=== PATIENT | female | born 1990 | race African-American/Black ===

== ENCOUNTER 2019-12-22 23:12 | Emergency (ER) | payer BC, OTHER ==
[~2019-12-22] VITALS: Ht 167.6 cm; Wt 104.2 kg
[2019-12-23] MEDS ORDERED: SODIUM CHLORIDE 0.9% 1,000 ML IV ONE (00:16)
[2019-12-23] MEDS ORDERED: LORAZEPAM 0.5MG TABLET PO ONE (00:30)
[2019-12-23 00:46] LABS: BASOPHILS % 0.8 % (0.0-2.0); EOSINOPHILS % 1.6 % (0.0-5.0); HEMATOCRIT. 38.1 % (36.0-48.0); HEMOGLOBIN. 12.8 g/dL (12.0-16.0); LYMPHOCYTES % 31.3 % (20.0-50.0); MEAN CORPUSCULAR HEMOGLOBIN 29.5 pg (28.0-32.0); MEAN CORPUSCULAR VOLUME 87.7 fL (81.0-99.0); MEAN PLATELET VOLUME 7.8 fl (7.4-10.4); MONOCYTES % 7.4 % (2.0-8.0); NEUTROPHILS % 58.9 % (40.0-76.0); PLATELET 265 x1000/uL (130-400); RED BLOOD CELL COUNT 4.34 mill/uL (4.2-5.4)
[2019-12-23 00:52] LABS: CHLORIDE 106 mEq/L (98-107)
[2019-12-23 00:56] LABS: ETHANOL BLOOD < 10 mg/dL
[2019-12-23 01:14] LABS: CLARITY URINE CLEAR (CLEAR); COLOR URINE YELLOW (YELLOW); KETONES URINE TRACE (NEGATIVE); LEUKOCYTE ESTERASE URINE 1+ (NEGATIVE); NITRITE URINE NEGATIVE (NEGATIVE); OCCULT BLOOD URINE 2+ (NEGATIVE); PROTEIN URINE TRACE (NEGATIVE); SPECIFIC GRAVITY URINE 1.039 (1.005-1.030); UROBILINOGEN URINE 0.2 E.U./dL (0.2-1.0)
[2019-12-23 01:37] LABS: CANNABINOID URINE SCREEN NEGATIVE (NEGATIVE); OPIATES URINE SCREEN NEGATIVE (NEGATIVE); PHENCYCLIDINE URINE SCREEN NEGATIVE (NEGATIVE)
[2019-12-23 01:38] LABS: *AMPHETAMINES SCREEN URINE NEGATIVE (NEGATIVE); *BARBITURATES SCREEN URINE NEGATIVE (NEGATIVE); *BENZODIAZEPINES SCREEN URINE NEGATIVE (NEGATIVE); *COCAINE SCREEN URINE NEGATIVE (NEGATIVE); METHADONE URINE SCREEN NEGATIVE (NEGATIVE)
[2019-12-23 02:00] VITALS: BP 109/74
== END 2019-12-23 02:15 | disposition home or self-care (01) ==
LOC: ER 23:12
DX: I49.3 Ventricular premature depolarization (principal); N30.00 Acute cystitis without hematuria; R00.2 Palpitations; Z87.440 Personal history of urinary (tract) infections; Z86.19 Personal history of other infectious and parasitic diseases
CPT/HCPCS: 36415; 80053; 80305; 80320; 81003; 81025; 84443; 85025; 93005; 99284; J7030; G0480

== ENCOUNTER 2020-08-31 13:25 | Emergency (ER) | payer BC, MEDICAID, OTHER ==
[~2020-08-31] VITALS: Ht 160 cm; Wt 120.0 kg
[2020-08-31 14:54] LABS: BASOPHILS % 0.8 % (0.0-2.0); EOSINOPHILS % 5.6 % (0.0-5.0); HEMOGLOBIN. 12.6 g/dL (12.0-16.0); LYMPHOCYTES % 25.7 % (20.0-50.0); MEAN CORPUSCULAR HEMOGLOBIN 27.7 pg (28.0-32.0); MEAN CORPUSCULAR VOLUME 85.8 fL (81.0-99.0); MEAN PLATELET VOLUME 8.5 fl (7.4-10.4); MONOCYTES % 6.5 % (2.0-8.0); NEUTROPHILS % 61.4 % (40.0-76.0); PLATELET 307 x1000/uL (130-400); RED BLOOD CELL COUNT 4.55 mill/uL (4.2-5.4); RED CELL DISTRIBUTION WIDTH 14.1 % (11.6-14.6)
[2020-08-31 14:59] LABS: CHLORIDE 111 mEq/L (98-107)
[2020-08-31 15:02] LABS: HCG SCREEN NEGATIVE
[2020-08-31 15:11] LABS: *AMPHETAMINES SCREEN URINE NEGATIVE (NEGATIVE); *BARBITURATES SCREEN URINE NEGATIVE (NEGATIVE); *BENZODIAZEPINES SCREEN URINE NEGATIVE (NEGATIVE)
[2020-08-31 15:12] LABS: *COCAINE SCREEN URINE NEGATIVE (NEGATIVE); METHADONE URINE SCREEN NEGATIVE (NEGATIVE); OPIATES URINE SCREEN NEGATIVE (NEGATIVE); PHENCYCLIDINE URINE SCREEN NEGATIVE (NEGATIVE)
[2020-08-31 15:22] LABS: CANNABINOID URINE SCREEN PRESUMTIVE POSITIVE (NEGATIVE)
[2020-08-31] MEDS ORDERED: KETOROLAC 30MG/ML VIAL IV ONE (15:30)
[2020-08-31 16:12] VITALS: BP 113/53
== END 2020-08-31 17:45 | disposition home or self-care (01) ==
LOC: ER 13:25
DX: R07.89 Other chest pain (principal)
CPT/HCPCS: 36415; 71045; 80053; 80305; 81025; 83880; 84484; 84703; 85025; 93005; 93970; 96374; 99285; J1885

== ENCOUNTER 2022-07-03 18:26 | Emergency (ER) | payer MEDICAID ==
[~2022-07-03] VITALS: Ht 160 cm; Wt 89.0 kg
[2022-07-03 23:11] LABS: CLARITY URINE CLEAR (CLEAR); COLOR URINE DARK YELLOW (YELLOW); KETONES URINE 3+ (NEGATIVE); LEUKOCYTE ESTERASE URINE TRACE (NEGATIVE); NITRITE URINE NEGATIVE (NEGATIVE); OCCULT BLOOD URINE NEGATIVE (NEGATIVE); PH URINE 5.5 (4.5-8.0); PROTEIN URINE 1+ (NEGATIVE); SPECIFIC GRAVITY URINE 1.031 (1.005-1.030)
[2022-07-04 00:59] LABS: BASOPHILS % 0.9 % (0.0-2.0); EOSINOPHILS % 1.4 % (0.0-5.0); HEMATOCRIT. 36.7 % (36.0-48.0); HEMOGLOBIN. 11.8 g/dL (12.0-16.0); LYMPHOCYTES % 39.7 % (20.0-50.0); MEAN CORPUSCULAR HEMOGLOBIN 27.3 pg (28.0-32.0); MEAN CORPUSCULAR VOLUME 84.5 fL (81.0-99.0); MEAN PLATELET VOLUME 8.7 fl (7.4-10.4); MONOCYTES % 7.6 % (2.0-8.0); NEUTROPHILS % 50.4 % (40.0-76.0); PLATELET 292 x1000/uL (130-400); RED BLOOD CELL COUNT 4.34 mill/uL (4.2-5.4); RED CELL DISTRIBUTION WIDTH 15.8 % (11.6-14.6)
[2022-07-04 01:04] LABS: CHLORIDE 109 mEq/L (98-107)
[2022-07-04] MEDS ORDERED: POTASSIUM CHLORIDE 20MEQ/PACKET PO NR (01:30)
[2022-07-04] MEDS ORDERED: NITR100C MT (01:59)
[2022-07-04 02:00] VITALS: BP 118/80
== END 2022-07-04 02:15 | disposition home or self-care (01) ==
LOC: ER 18:26
DX: R30.0 Dysuria (principal); F41.9 Anxiety disorder, unspecified; K59.00 Constipation, unspecified; F32.9 Major depressive disorder, single episode, unspecified; Z87.440 Personal history of urinary (tract) infections
CPT/HCPCS: 36415; 80053; 81003; 81025; 83605; 85025; 99283

== ENCOUNTER 2022-07-09 17:31 | Emergency (ER) | payer MEDICAID ==
[~2022-07-09] VITALS: Ht 170.2 cm; Wt 87.0 kg
[~2022-07-09 17:31] MED LIST: NITR100C MT
[2022-07-09 17:35] VITALS: BP 107/68
[2022-07-09] MEDS ORDERED: SODIUM CHLORIDE 0.9% 1,000 ML IV ONE (18:15)
[2022-07-09 20:37] LABS: BASOPHILS % 0.4 % (0.0-2.0); EOSINOPHILS % 0.4 % (0.0-5.0); HEMATOCRIT. 30.8 % (36.0-48.0); HEMOGLOBIN. 10.1 g/dL (12.0-16.0); LYMPHOCYTES % 10.9 % (20.0-50.0); MEAN CORPUSCULAR HEMOGLOBIN 27.4 pg (28.0-32.0); MEAN CORPUSCULAR VOLUME 83.7 fL (81.0-99.0); MEAN PLATELET VOLUME 8.3 fl (7.4-10.4); MONOCYTES % 6.7 % (2.0-8.0); NEUTROPHILS % 81.6 % (40.0-76.0); PLATELET 260 x1000/uL (130-400); RED BLOOD CELL COUNT 3.68 mill/uL (4.2-5.4); RED CELL DISTRIBUTION WIDTH 15.5 % (11.6-14.6)
[2022-07-09 20:41] LABS: CHLORIDE 107 mEq/L (98-107)
[2022-07-09 22:26] LABS: CLARITY URINE CLEAR (CLEAR); COLOR URINE YELLOW (YELLOW); KETONES URINE 1+ (NEGATIVE); LEUKOCYTE ESTERASE URINE TRACE (NEGATIVE); NITRITE URINE NEGATIVE (NEGATIVE); OCCULT BLOOD URINE NEGATIVE (NEGATIVE); PH URINE 7.5 (4.5-8.0); PROTEIN URINE NEGATIVE (NEGATIVE); UROBILINOGEN URINE 0.2 E.U./dL (0.2-1.0)
== END 2022-07-09 23:53 | disposition home or self-care (01) ==
LOC: ER 17:31
DX: R55 Syncope and collapse (principal); F41.9 Anxiety disorder, unspecified; K59.00 Constipation, unspecified; F32.9 Major depressive disorder, single episode, unspecified; Z87.440 Personal history of urinary (tract) infections
CPT/HCPCS: 36415; 80053; 81003; 81025; 85025; 93005; 96360; 99284; J7030; Z7610

== ENCOUNTER 2023-08-26 14:00 | Emergency (ER) | payer MEDICAID ==
[~2023-08-26] VITALS: Ht 165.1 cm; Wt 77.0 kg
[2023-08-26 14:02] VITALS: BP 117/76; PULSE 106; RESP 15; TEMP 101.5; O2SAT 99
[2023-08-26] MEDS ORDERED: ACETAMINOPHEN 325MG TABLET PO NR (15:00)
[2023-08-26] MEDS ORDERED: ACETAMINOPHEN 325MG TABLET PO ONE (15:00)
[2023-08-26] MEDS ORDERED: ASPI-986 MT (19:13)
[2023-08-26] MEDS ORDERED: TOPUD MT (19:13)
[2023-08-26] MEDS ORDERED: AZIT250T12 MT (19:13)
[2023-08-26] MEDS ORDERED: DEXT30SU17 MT (19:13)
[2023-08-26] MEDS ORDERED: P50 MT (19:13)
== END 2023-08-26 20:39 | disposition home or self-care (01) ==
LOC: ER 14:00
DX: B34.9 Viral infection, unspecified (principal); F41.9 Anxiety disorder, unspecified; F32.A Depression, unspecified; Z20.822 Contact with and (suspected) exposure to COVID-19
CPT/HCPCS: 99283; 87426; 87430; 87070; 87804 ×2; C9803

== ENCOUNTER 2023-12-01 10:50 | Emergency (ER) | payer MEDICAID ==
[~2023-12-01] VITALS: Ht 167.6 cm; Wt 100.0 kg
[~2023-12-01 10:50] MED LIST changes: +ASPI-986 MT; +AZIT250T12 MT; +DEXT30SU17 MT; +P50 MT; +TOPUD MT
[2023-12-01 11:01] VITALS: BP 107/71; PULSE 70; RESP 18; TEMP 98.1; O2SAT 99
[2023-12-01] MEDS ORDERED: ESCI10TA MT (13:59)
[2023-12-01] MEDS ORDERED: HYDR-459 MT (13:59)
[2023-12-01] MEDS ORDERED: LORA-250 MT (13:59)
== END 2023-12-01 14:15 | disposition home or self-care (01) ==
LOC: ER 10:50
DX: R00.2 Palpitations (principal); F41.9 Anxiety disorder, unspecified; K59.00 Constipation, unspecified; F32.A Depression, unspecified; F12.90 Cannabis use, unspecified, uncomplicated; Z98.890 Other specified postprocedural states
CPT/HCPCS: 93005; 99283